=== PATIENT | female | born 2000 | race Two or more races ===

== ENCOUNTER 2020-11-19 12:22 | Day surgery (SDC) | payer BC ==
[~2020-11-19] VITALS: Ht 154.9 cm; Wt 72.1 kg
[~2020-11-19 12:22] MED LIST: ACEBUTCAFT PO
[2020-11-19] MEDS ORDERED: METF500 (13:20)
== END 2020-11-19 15:25 | disposition home or self-care (01) ==
LOC: ORSCSDS 12:22
PROVIDERS: Surgery
PROC: 0JB10ZZ Excision of Face Subcutaneous Tissue and Fascia, Open Approach (ICD-10-PCS; principal; 2020-11-19 13:45)
DX: M79.89 Other specified soft tissue disorders (principal); E03.9 Hypothyroidism, unspecified; E28.2 Polycystic ovarian syndrome; E78.5 Hyperlipidemia, unspecified; Z79.84 Long term (current) use of oral hypoglycemic drugs
CPT/HCPCS: 82947; 84703; 88304; J0171; J1100; J1885; J2250; J2405; J2704; J3010; J7120

== ENCOUNTER → 2021-04-23 | Outpatient (CLI) | payer BC ==
[~2021-04-23] MED LIST changes: +METF500
== END ==
LOC: LAB SHORT 11:30
DX: R30.9 Painful micturition, unspecified (principal)
CPT/HCPCS: 87077; 87086; 87186

== ENCOUNTER → 2023-11-04 | Outpatient (CLI) | payer BC ==
[2023-11-10 23:13] LABS: HPV GENOTYPE 16 BY PCR Negative; HPV GENOTYPE 18 BY PCR Negative; HPV SOURCE Vaginal; HPV, OTHER HIGH RISK BY PCR Positive
== END | disposition home or self-care (01) ==
LOC: LAB SHORT 12:36 → LAB 12:36
PROVIDERS: Internal Medicine
DX: Z00.00 Encounter for general adult medical examination without abnormal findings (principal)
CPT/HCPCS: 87624; 88142

== ENCOUNTER → 2024-12-06 | Outpatient (CLI) | payer BC | END | disposition home or self-care (01) | LOC: LAB SHORT 17:28 → LAB 17:28 | PROVIDERS: Internal Medicine | DX: R87.810 Cervical high risk human papillomavirus (HPV) DNA test positive (principal) | CPT/HCPCS: 87624; G0145 ==